=== PATIENT | female | born 1975 | race Caucasian/White ===

== ENCOUNTER 2016-08-20 05:11 | Emergency (ER) | payer OTHER ==
[2016-08-20] MEDS ORDERED: Lactated Ringers 1,000 ML IV ONE (05:38)
--- NOTE | 2016-08-20 05:38 | EDM.PDOC ---
ED HPI SEIZURE COMPLAINT - General Chief Complaint: Neurological Problem Stated Complaint: POSS SEIZURE Time Seen by Provider: 08/20/16 05:31 - History of Present Illness INITIAL COMMENTS - FREE TEXT/NARRATIVE: 41-year-old female presents emergency room after having a seizure at home. Patient awoke not feeling right she noticed she bit her tongue. She felt very much the way she does after having a seizure however this time she was not incontinent of urine. The patient is on Keppra thousand milligrams 3 times a day. She has one to 2 seizures yearly. The patient has about a 10 year history of having seizures the cause of these has not been clearly explained to the patient. She has a grandfather that had seizures at one point. Patient has not used any drugs and seldom uses alcohol. Recently she has not been getting enough sleep and has been under more stress than usual. She has not missed any of her medication. 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 Social & Family History - Family History Family Medical History: Noncontributory - Tobacco Use Smoking Status *Q: Never Smoker Second Hand Smoke Exposure: No - Caffeine Use Caffeine Use: Reports: Coffee, Tea - Alcohol Use Days Per Week of Alcohol Use: 0 - Recreational Drug Use Recreational Drug Use: No - Living Situation & Occupation Living situation: Reports: single Occupation: employed (Lives at home with HER-2 sons.) ED ROS GENERAL - Review of Systems Review Of Systems: See Below Constitutional: Denies: fever, chills HEENT: Reports: No symptoms Respiratory: Reports: No Symptoms Cardiovascular: Reports: No symptoms GI/Abdominal: Reports: No symptoms : Reports: no symptoms Neurological: Reports: Headache (Mild at this point), Seizure. Denies: Confusion, Dizziness Psychiatric: Reports: No symptoms - Physical Exam Exam: See Below Exam Limited By: No limitations General Appearance: alert, no apparent distress Eye Exam: bilateral eye: EOMI, normal inspection, PERRL Ears: normal external exam, normal canal, hearing grossly normal, normal TMs Nose: normal inspection, normal mucosa, no blood Throat/Mouth: Normal inspection, Normal lips, Normal teeth, Normal gums, Normal oropharynx, Normal voice, No airway compromise, Evidence of tongue biting Head Exam: atraumatic, normocephalic Neck: normal inspection, supple, non-tender, full range of motion. No: lymphadenopathy (L), lymphadenopathy (R) Respiratory/Chest: no respiratory distress, lungs clear, normal breath sounds, no accessory muscle use, chest non-tender Cardiovascular: regular rate, rhythm, no edema, no murmur GI/Abdominal: normal bowel sounds, soft, non tender, no organomegaly, no distention, no abnormal bruit, no mass Neuro Exam (Abbreviated): alert, oriented, normal cognition Course - Vital Signs Last Recorded V/S: Last Vital Signs Temp 36.7 C 08/20/16 05:19 Pulse 91 08/20/16 05:19 Resp 16 08/20/16 05:19 BP 116/79 08/20/16 05:19 Pulse Ox 97 08/20/16 05:19 - Orders/Labs/Meds Orders: Active Orders 24 hr Category Date Time Status JEOVANY [REF] Stat Lab 08/20/16 05:24 Received Labs: Laboratory Tests 08/20/16 08/20/16 Range/Units 05:24 05:24 WBC 6.21 (3.98-10.04) K/mm3 RBC 4.66 (3.98-5.22) M/mm3 Hgb 13.6 (11.2-15.7) gm/L Hct 41.0 (34.1-44.9) % MCV 88.0 (79.4-94.8) fl MCH 29.2 (25.6-32.2) pg MCHC 33.2 (32.2-35.5) g/dl RDW Std Deviation 39.8 (36.4-46.3) fL Plt Count 331 (182-369) K/mm3 MPV 10.0 (9.4-12.3) fl Neutrophils % (Manual) 77 H (40-60) % Band Neutrophils % 2 (0-10) % Lymphocytes % (Manual) 17 L (20-40) % Atypical Lymphs % 0 % Monocytes % (Manual) 3 (2-10) % Eosinophils % (Manual) 1 (0.7-5.8) % Basophils % (Manual) 0 L (0.1-1.2) Platelet Estimate Adequate RBC Morph Comment Normal Sodium 140 (136-145) mEq/L Potassium 3.9 (3.5-5.1) mEq/L Chloride 106 (98-107) mEq/L Carbon Dioxide 22 (21-32) mEq/L Anion Gap 15.9 H (5-15) BUN 6 L (7-18) mg/dL Creatinine 1.0 (0.55-1.02) mg/dL Est Cr Clr Drug Dosing 78.15 mL/min Estimated GFR (MDRD) > 60 (>60) mL/min BUN/Creatinine Ratio 6.0 L (14-18) Glucose 104 (74-106) mg/dL Calcium 8.4 L (8.5-10.1) mg/dL Total Bilirubin 0.3 (0.2-1.0) mg/dL AST 24 (15-37) U/L ALT 36 (14-59) U/L Alkaline Phosphatase 62 (46-116) U/L Total Protein 6.8 (6.4-8.2) g/dl Albumin 3.4 (3.4-5.0) g/dl Globulin 3.4 gm/dL Albumin/Globulin Ratio 1.0 (1-2) Meds: Medications Discontinued Medications Generic Name Dose Route Start Last Admin Trade Name Freq PRN Reason Stop Dose Admin Diazepam 5 mg 08/20/16 05:38 08/20/16 05:50 Valium IVPUSH 08/20/16 05:39 5 mg ONETIME ONE Administration Lactated Ringer's 1,000 mls @ 999 mls/hr 08/20/16 05:38 08/20/16 05:53 Ringers, Lactated IV 08/20/16 06:38 999 mls/hr .BOLUS ONE Administration - Re-Assessments/Exams Free Text/Narrative Re-Assessment/Exam: 08/20/16 06:53 Patient had an IV started received 5 mg of Valium to lower chances of a recurrent seizure. Labs aren't very helpful at this point. Keppra level is pending. Patient will be discharged home to rest. She is strongly encouraged to get adequate sleep and minimize her stress. Also discussed drinking plenty of water. Departure - Departure Time of Disposition: 06:54 Disposition: Home, Self-Care 01 Clinical Impression: Seizure disorder Forms: ED Department Discharge Additional Instructions: Return to the emergency room with any questions or problems. Followup in the clinic on Thursday or early next week to get the results of your Keppra level. - My Orders Last 24 Hours: My Active Orders 08/20/16 05:24 KEPPRA [REF] Stat - Assessment/Plan Last 24 Hours: My Active Orders 08/20/16 05:24 KEPPRA [REF] Stat
[2016-08-20 07:03] VITALS: BP 108/75
== END 2016-08-20 07:00 | disposition home or self-care (01) ==
LOC: JD.ED 05:11
DX: G40.909 Epilepsy, unspecified, not intractable, without status epilepticus (principal); Z88.8 Allergy status to other drugs, medicaments and biological substances; Z79.899 Other long term (current) drug therapy
CPT/HCPCS: 80053; 80177; 85025; 96361; 96374; 99284; J3360; J7120; 36415

== ENCOUNTER 2018-10-26 07:51 | Day surgery (SDC) | payer BC ==
[~2018-10-26 07:51] MED LIST: Lactated Ringers 1,000 ML IV SCH; Lidocaine 1% 2 ML ONE; Lidocaine 1%/Sod Bicarbonate in NS 8.4% 1 ML Syringe IDERM PRN; Midazolam 1 MG/ML 2 ML SDV ONE; Propofol 200 MG/20 ML SDV ONE; Rocuronium 50 MG/5 ML Vial ONE; Sodium Chloride 0.9% 10 ML Syringe FLUSH PRN; ceFAZolin 1 GM Vial ONE; fentaNYL 250 MCG/5 ML SDV ONE
[2018-10-26] MEDS ORDERED: Lidocaine 1% with EPINEPHrine 1:100,000 20 ML MDV ONE (08:20)
[2018-10-26] MEDS ORDERED: Bupivacaine 0.5% 30 ML SDV ONE (08:20)
[2018-10-26] MEDS ORDERED: Sodium Chloride 0.9% 50 ML SDV ONE (08:21)
--- NOTE | 2018-10-26 08:21 | PCM.PREANE ---
Preanesthetic Assessment - Anesthesia/Transfusion/Family Hx Anesthesia History: Prior Anesthesia Without Reaction Family History of Anesthesia Reaction: No Transfusion History: No Prior Transfusion(s) - Review of Systems General: No Symptoms Pulmonary: No Symptoms Cardiovascular: No Symptoms Gastrointestinal: No Symptoms Neurological: No Symptoms (last seizures last year, first seizure was 2006, unkown definitive diagnosisi, undefined) Other: Reports: None - Physical Assessment NPO Status Date: 10/25/18 NPO Status Time: 22:00 Pulse: 83 O2 Sat by Pulse Oximetry: 98 Respiratory Rate: 16 Blood Pressure: 124/71 Temperature: 98.0 C Vital Signs: Last Vital Signs Temp 36.7 C 10/26/18 08:05 Pulse 83 10/26/18 08:05 Resp 16 10/26/18 08:05 BP 124/71 10/26/18 08:05 Pulse Ox 98 10/26/18 08:05 ASA Class: 2 Mental Status: Alert & Oriented x3 Airway Class: Mallampati = 1 Dentition: Reports: Normal Dentition Thyro-Mental Finger Breadths: 3 Mouth Opening Finger Breadths: 3 ROM/Head Extension: Full Lungs: Clear to Auscultation, Normal Respiratory Effort Cardiovascular: Regular Rate, Regular Rhythm - Allergies Allergies/Adverse Reactions: Allergies Allergy/AdvReac Type Severity Reaction Status Date / Time lorazepam [From Ativan] Allergy Seizure Verified 10/25/18 12:22 - Acknowledgements Anesthesia Type Planned: General Anesthesia Pt an Appropriate Candidate for the Planned Anesthesia: Yes Alternatives and Risks of Anesthesia Discussed w Pt/Guardian: Yes Pt/Guardian Understands and Agrees with Anesthesia Plan: Yes PreAnesthesia Questionnaire HEENT History: Reports: Impaired Vision, Sinusitis Other HEENT History: wears eyeglasses Cardiovascular History: Reports: None Respiratory History: Reports: Other (See Below) Other Respiratory History: VIRAL URI Gastrointestinal History: Reports: None Genitourinary History: Reports: Pyelonephritis, Renal Calculus, UTI, Recurrent 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: , Other (See Below) LMP (Approximate): Other (See Below) (LMP 5-16-19, awaiting HCG) Other OB/BYN History: FIBROID UTERUS, MENORRHAGIA, OVARIAN CYST Musculoskeletal History: Reports: Back Pain, Chronic Neurological History: Reports: Seizure (last seizure 1 yr ago) Psychiatric History: Reports: None Endocrine/Metabolic History: Reports: None Hematologic History: Reports: Anemia, Iron Deficiency Immunologic History: Reports: None Oncologic (Cancer) History: Reports: None Dermatologic History: Reports: None - Infectious Disease History Infectious Disease History: Reports: Chicken Pox, Measles - Past Surgical History Head Surgeries/Procedures: Reports: None HEENT Surgical History: Reports: None Cardiovascular Surgical History: Reports: None Respiratory Surgical History: Reports: None GI Surgical History: Reports: None Female Surgical History: Reports: Section, Oophorectomy Other Female Surgeries/Procedures: had one ovary removed. Male Surgical History: Endocrine Surgical History: Reports: None Neurological Surgical History: Reports: None Musculoskeletal Surgical History: Reports: None Dermatological Surgical History: Reports: None - SUBSTANCE USE Smoking Status *Q: Never Smoker Recreational Drug Use History: No - HOME MEDS Home Medications: Home Meds Ibuprofen 200 - 600 mg PO Q6H PRN 10/25/18 [History] levETIRAcetam [Levetiracetam] 750 mg PO BID 10/25/18 [History] - CURRENT (IN HOUSE) MEDS Current Meds: Current Medications Lactated Ringer's (Ringers, Lactated) 1,000 mls @ 125 mls/hr IV ASDIRECTED MARNIE Stop: 10/26/18 23:00 Lidocaine/Sodium Bicarbonate (Buffered Lidocaine 1% In Ns 8.4%) 0.25 ml IDERM ONETIME PRN PRN Reason: Prior to IV Start Stop: 10/26/18 18:00 Sodium Chloride (Saline Flush) 10 ml FLUSH ASDIRECTED PRN PRN Reason: Keep Vein Open Stop: 10/26/18 18:00 Discontinued Medications Cefazolin Sodium (Ancef) Confirm Administered Dose 1 gm .ROUTE .STK-MED ONE Stop: 10/26/18 07:41 Cefazolin Sodium (Ancef) Confirm Administered Dose 1 gm .ROUTE .STK-MED ONE Stop: 10/26/18 07:41 Fentanyl (Sublimaze) Confirm Administered Dose 250 mcg .ROUTE .STK-MED ONE Stop: 10/26/18 07:16 Lidocaine HCl (Xylocaine-Mpf 1%) Confirm Administered Dose 2 mls @ as directed .ROUTE .STK-MED ONE Stop: 10/26/18 07:14 Lidocaine HCl (Xylocaine-Mpf 1%) Confirm Administered Dose 2 mls @ as directed .ROUTE .STK-MED ONE Stop: 10/26/18 07:14 Midazolam HCl (Versed 1 Mg/Ml) Confirm Administered Dose 2 mg .ROUTE .STK-MED ONE Stop: 10/26/18 07:17 Propofol (Diprivan 20 Ml) Confirm Administered Dose 200 mg .ROUTE .STK-MED ONE Stop: 10/26/18 07:14 Rocuronium [place] (Zemuron) Confirm Administered Dose 50 mg .ROUTE .STK-MED ONE Stop: 10/26/18 07:17
[2018-10-26] MEDS ORDERED: Lactated Ringers 1,000 ML ONE (09:44)
[2018-10-26] MEDS ORDERED: fentaNYL 100 MCG/2 ML SDV ONE (09:50)
[2018-10-26] MEDS ORDERED: fentaNYL 100 MCG/2 ML SDV IVPUSH PRN (09:56)
[2018-10-26] MEDS ORDERED: Ondansetron 4 MG/2 ML SDV IVPUSH PRN (09:56)
[2018-10-26] MEDS ORDERED: HYDROmorphone 0.5 MG/0.5 ML Syringe ONE ×2 (10:11→10:30)
[2018-10-26] MEDS ORDERED: HYDROmorphone 0.5 MG/0.5 ML Syringe IVPUSH ONE (10:30)
[2018-10-26] MEDS ORDERED: Ondansetron 4 MG/2 ML SDV ONE (11:13)
[2018-10-26] MEDS ORDERED: Ketorolac 30 MG/ML SDV ONE (11:22)
--- NOTE | 2018-10-26 11:46 | PCM.POSTAN ---
POST ANESTHESIA ASSESSMENT - MENTAL STATUS Mental Status: Alert, Oriented - VITAL SIGNS Pulse Rate: 79 SaO2: 97 Resp Rate: 8 Blood Pressure: 115/71 Temperature: 98.0 C - RESPIRATORY Respiratory Status: Respiratory Rate WNL, Airway Patent, O2 Saturation Stable - CARDIOVASCULAR CV Status: Pulse Rate WNL, Blood Pressure Stable - GASTROINTESTINAL GI Status: No Symptoms - PAIN Pain Score: 0 - POST OP HYDRATION Hydration Status: Adequate & Stable
--- NOTE | 2018-10-26 11:51 | PCM.OPNOTE ---
- General Post-Op/Procedure Note Date of Surgery/Procedure: 10/26/18 Operative Procedure(s): LAVH (left ovary not removed right ovary previously removed at a previous surgery) (right fimbria not removed as it was adhered to the pelvic sidewall) Pre Op Diagnosis: menorrhagia perimenopausal, suspected fibroid uterus intramural, dysmenorrhea. Post-Op Diagnosis: Same Anesthesia Technique: General ET Tube Primary Surgeon: Papa Hernandez Secondary Surgeon: Donald Zhang Anesthesia Provider: Angeles Gray Stamp Collector: Glenn Frank (PAS) Reason Stamp Collector Was Necessary: difficulty of surgery, Asst. surgery, decrease comorbidity and mortality Role of Stamp Collector: difficulty of surgery, Asst. surgery, decrease comorbidity and mortality Fluid Replacement, Intraop: 1,800 Output, Urine Amount: 250 EBL in mLs: 300 Drain/Tube Comments:: Malone during surgery removed after surgery Complications: None Condition: Good Free Text/Narrative:: Patient was transported to the operating room and placed under general anesthesia with endotracheal intubation in the low dorsal lithotomy position and prepared and draped in a sterile fashion examination under anesthesia revealed anterior uterus no adnexal masses the uterus and freely mobile. Timeout performed. Patient had received Ancef 2 g prior surgery and SCDs in place and functioning prior surgery. Having been draped in a sterile fashion the uterine manipulator was placed and subsequently removed at the vaginal portion of the procedure. Malone catheter was placed and removed after surgery. The pneumoperitoneum was obtained by injecting 2 mL of 0.5% Marcaine without epinephrine at the umbilicus pneumoperitoneum needle was inserted pneumoperitoneum was obtained and the 6 mm trocar was then inserted. (self- retaining) There were dense adhesions of the omentum to the anterior abdominal wall these were lysed with blunt dissection no excessive bleeding. Left and right flank incisions were then made after transilluminating the abdomen injecting 2 mL of 0.5% Marcaine and placing the right and left self-retaining trochars. Visualization of the pelvic organs was accomplished the left ovary had not been removed in (right ovary had been previously removed) the right fimbria was densely adherent to the anterior abdominal wall and not removed at the time of surgery. The left ovary was not removed the left tube uterus and cervix were removed during surgery. Grasping the uterus at the right cornua utilizing Enseal sealing device crossclamping, activating, and incising beginning at the utero-ovarian ligament round ligament and proceeding caudad until the reflection of the bladder flap at the lower uterine segment was undermined and incised again utilizing the Enseal. What appeared to be the uterine vasculature was also crossclamped activated and incised with the Enseal. Attention was then turned the left side. The left fimbria was grasped and elevated and utilizing Enseal crossclamping between the fimbria and the ovary activating, incising, cutting the fallopian tube was freed away from the left ovary. The utero- ovarian and round ligaments were then crossclamped with the Enseal activated and incised and proceeding caudad crossclamping activating and incising until the reflection of the bladder flap at the lower uterine segment was made at the midline. Uterine vasculature of the left side was also crossclamped activated and incised with the Enseal. The pneumoperitoneum was then reduced and the vaginal portion of the procedure was performed injecting 17 mL of 0.25% lidocaine with epinephrine and multiple confluent areas massaging in with (4 x 4 ) and circumscribing the cervix posterior colpotomy was made without difficulty utilizing the Enseal device crossclamping the left uterosacral cardinal ligament bundle activating and incising same procedure was then carried out on the patient's right side and then crossclamping the remaining portion of tissue of the broad ligament on the patient's right side and then left side utilizing the Enseal. The uterus left tube were removed as noted above the left ovary was not removed. Sponge needle pack asthma sharp count correct 2 and the vaginal cuff was closed with running locking suture of 0 Monocryl posteriorly and then anteriorly to obtain hemostasis. The anterior and posterior vaginal cuff and approximated with 0 Monocryl. Attention was then turned to the abdominal area pneumoperitoneum was re-instilled and prompt visualization of the pelvic surgery site was accomplished no bleeding pneumoperitoneum was reduced the 3 trochars were removed and the incisions closed with 4-0 Monocryl in interrupted suture and Dermabond applied. As noted above Malone catheter removed after surgery. Sponge needle pack and estimate counts were correct on closure the abdominal portion of the surgery. She was transported postanesthesia care unit in satisfactory condition no blood transfusions required patient did receive Toradol 1121. Images: Image 001: The right fimbria densely adherent to the pelvic sidewall and not removed. Image 002: The left ovary and left fallopian tube Image 003 shows the right adnexa with portion of fallopian tube densely adherent to the pelvic sidewall and again as noted not removed. Image 004: Posterior cul-de-sac after completion of the hysterectomy Image 005 shows small blood clot by the ovary but no active bleeding upon visualization.
--- NOTE | 2018-10-26 12:13 | PCM48HPAN ---
Post Anesthesia Note - EVALUATION WITHIN 48HRS OF ANESTHETIC Vital Signs in Normal Range: Yes Patient Participated in Evaluation: Yes Respiratory Function Stable: Yes Airway Patent: Yes Cardiovascular Function Stable: Yes Hydration Status Stable: Yes Pain Control Satisfactory: Yes Nausea and Vomiting Control Satisfactory: Yes Mental Status Recovered: Yes Temperature: 98.0 C - COMMENTS/OBSERVATIONS Free Text/Narrative:: pt resting quietly. VSS. denies pain or discomfort. No c/o
[2018-10-26] MEDS ORDERED: Morphine 10 MG/ML SDV IM PRN (14:24)
[2018-10-26] MEDS ORDERED: hydrOXYzine HCl 25 MG/ML SDV IM PRN (14:27)
[2018-10-26] MEDS: Acetaminophen/oxyCODONE 325-5 MG Tab PO PRN ×2 (17:34→22:03)
[2018-10-26] MEDS: Ondansetron 4 MG/2 ML SDV IVPUSH SCH (19:35)
[2018-10-27] MEDS: Ondansetron 4 MG/2 ML SDV IVPUSH SCH (04:02)
[2018-10-27] MEDS: Acetaminophen/oxyCODONE 325-5 MG Tab PO PRN (05:16)
[2018-10-27 11:46] VITALS: BP 112/56
== END 2018-10-27 09:00 | disposition home or self-care (01) ==
LOC: JD.SDS 07:51 → JD.MS 15:06 → JD.SDS 10-27 09:00
PROVIDERS: ATTEND Obstetrics & Gynecology
DX: D25.9 Leiomyoma of uterus, unspecified (principal); N80.0 Endometriosis of uterus; N87.9 Dysplasia of cervix uteri, unspecified; N72 Inflammatory disease of cervix uteri; N88.0 Leukoplakia of cervix uteri; N88.8 Other specified noninflammatory disorders of cervix uteri; Z88.8 Allergy status to other drugs, medicaments and biological substances; Z90.721 Acquired absence of ovaries, unilateral; Z79.899 Other long term (current) drug therapy
CPT/HCPCS: 36415; 51798; 58552; 81025; 85025; 86850; 86900; 86901; A9270; J0690; J1170; J1885; J2001; J2250; J2270; J2405; J2704; J3010; J3410; J3490; J7120; 00944